=== PATIENT | female | born 1980 | race Caucasian/White ===

== ENCOUNTER 2020-10-30 09:03 | Emergency (ER) | payer OTHER ==
[2020-10-30 09:43] VITALS: BP 132/65; PULSE 75; TEMP 97.5; BMI 26.3
[2020-10-30] MEDS ORDERED: ACETAMINOPHEN 1000 MG/100 ML VIAL (NON FORMULARY) IVPB ONE (10:04)
[2020-10-30] MEDS ORDERED: SODIUM CHLORIDE 1,000 ML IV STA (10:04)
[2020-10-30] MEDS ORDERED: METOCLOPRAMIDE HCL INJECTION 10 MG/2 ML VIAL IVPB ONE (10:59)
[2020-10-30] MEDS ORDERED: METOCLOPRAMIDE HCL INJECTION 10 MG/2 ML VIAL ONE (11:16)
[2020-10-30] MEDS ORDERED: ACETAMINOPHEN INJECTION 100 ML IVPB ONE (11:17)
[2020-10-30 11:38] LABS: BASO % 0.7 % (0-2.0); EOS % 5.2 % (0-4.5); HEMATOCRIT 41.8 % (32.4-45.2); HEMOGLOBIN 14.6 GM/dL (10.7-15.3); LYMPH % 35.6 % (8-40); MCH 32.3 pg (25.7-33.7); MCHC 34.9 g/dl (32.0-36.0); MEAN CELL VOLUME 92.5 fl (80-96); MEAN PLT VOLUME 8.7 fl (7.5-11.1); MONO % 5.4 % (3.8-10.2); NEUT % 53.1 % (42.8-82.8); PLATELET COUNT 286 K/MM3 (134-434); RBC 4.52 M/mm3 (3.60-5.2); RDW 13.7 % (11.6-15.6); WHITE BLOOD COUNT 5.6 K/mm3 (4.0-10.0)
[2020-10-30 11:40] LABS: PH,URINE 5.5 (5.0-8.0); URINE APPEARANCE CLEAR; URINE BILIRUBIN NEGATIVE (NEGATIVE); URINE COLOR YELLOW; URINE GLUCOSE (UA) NEGATIVE (NEGATIVE); URINE KETONE NEGATIVE (NEGATIVE); URINE LEUK ESTERASE NEGATIVE (NEGATIVE); URINE NITRITE NEGATIVE (NEGATIVE); URINE PROTEIN NEGATIVE (NEGATIVE); URINE UROBILINOGEN 0.2 mg/dL (0.2-1.0)
[2020-10-30 11:42] LABS: HCG,QUALITATIVE URINE Negative
[2020-10-30 11:45] LABS: POTASSIUM 4.2 mmol/L (3.5-5.1)
[2020-10-30 11:46] LABS: CALCIUM 9.2 mg/dL (8.5-10.1)
[2020-10-30 11:47] LABS: BLOOD UREA NITROGEN 10.4 mg/dL (7-18)
[2020-10-30 11:50] LABS: CREATININE 0.7 mg/dL (0.55-1.3)
[2020-10-30 11:53] LABS: BILIRUBIN,TOTAL 0.6 mg/dL (0.2-1)
== END 2020-10-30 15:06 | disposition home or self-care (01) ==
LOC: JER 09:03 → JERFT 09:03
PROC: 3E033NZ Introduction of Analgesics, Hypnotics, Sedatives into Peripheral Vein, Percutaneous Approach (ICD-10-PCS; principal; 2020-10-30)
PROC: 3E033GC Introduction of Other Therapeutic Substance into Peripheral Vein, Percutaneous Approach (ICD-10-PCS; 2020-10-30)
PROC: 3E0337Z Introduction of Electrolytic and Water Balance Substance into Peripheral Vein, Percutaneous Approach (ICD-10-PCS; 2020-10-30)
DX: R51.9 Headache, unspecified (principal); M25.512 Pain in left shoulder
CPT/HCPCS: 36415; 70450-TC; 80053; 81003; 84703; 85025; 86618; 87086; 99285-25; J0131

== ENCOUNTER 2021-06-05 13:57 | Emergency (ER) | payer OTHER ==
[2021-06-05 14:12] VITALS: BP 103/70; PULSE 75; TEMP 98.2; BMI 26.1
[2021-06-05] MEDS ORDERED: KETOROLAC TROMETHAMINE 60 MG/2 ML VIAL IM ONE (15:38)
[2021-06-05] MEDS ORDERED: METHOCARBAMOL 500 MG TABLET PO ONE (15:38)
[2021-06-05] MEDS ORDERED: LIDOCAINE 5% TOPICAL PATCH TP ONE (15:39)
[2021-06-05] MEDS ORDERED: METHOCARBAMOL 500 MG TABLET ONE (15:51)
[2021-06-05] MEDS ORDERED: LIDOCAINE 5% TOPICAL PATCH ONE (15:51)
[2021-06-05] MEDS ORDERED: KETOROLAC TROMETHAMINE 30 MG/1 ML VIAL ONE (15:51)
== END 2021-06-05 17:04 | disposition home or self-care (01) ==
LOC: JERFT 13:57 → JER 13:57 → JERFT 17:04
PROC: 3E023GC Introduction of Other Therapeutic Substance into Muscle, Percutaneous Approach (ICD-10-PCS; principal; 2021-06-05)
DX: M54.5 Low back pain (principal)
CPT/HCPCS: 72100-TC-FY; 99284-25

== ENCOUNTER 2022-03-09 21:01 | Emergency (ER) | payer OTHER ==
[2022-03-09 21:27] VITALS: BP 121/81; PULSE 90; TEMP 98.1; BMI 22.6
[2022-03-09] MEDS ORDERED: KETOROLAC TROMETHAMINE 30 MG/1 ML VIAL IM ONE (22:24)
[2022-03-09] MEDS ORDERED: KETOROLAC TROMETHAMINE 30 MG/1 ML VIAL ONE (22:25)
== END 2022-03-09 23:28 | disposition home or self-care (01) ==
LOC: JERFT 21:01
PROC: 3E0234Z Introduction of Serum, Toxoid and Vaccine into Muscle, Percutaneous Approach (ICD-10-PCS; principal; 2022-03-09)
DX: S93.491A Sprain of other ligament of right ankle, initial encounter (principal)
CPT/HCPCS: 73610-TC-RT-FY; 73630-TC-RT-FY; 99284-25

== ENCOUNTER 2023-08-01 20:40 | Emergency (ER) | payer OTHER ==
[2023-08-01 20:47] VITALS: BP 141/91; PULSE 82; RESP 20; TEMP 97.5; BMI 25.2
[2023-08-01] MEDS ORDERED: CLINDAMYCIN HCL 300 MG CAPSULE PO ONE (21:19)
[2023-08-01] MEDS ORDERED: traMADol HCL 50 MG TABLET PO ONE (21:22)
[2023-08-01] MEDS ORDERED: CLINDAMYCIN HCL 150 MG CAPSULE (FP) ONE (21:24)
[2023-08-01] MEDS ORDERED: traMADol HCL 50 MG TABLET ONE (21:24)
== END 2023-08-01 21:33 | disposition home or self-care (01) ==
LOC: JERFT 20:40
DX: K08.89 Other specified disorders of teeth and supporting structures (principal)
CPT/HCPCS: 99283-25

== ENCOUNTER 2023-10-16 08:58 | Emergency (ER) | payer OTHER ==
[2023-10-16 09:10] VITALS: RESP 18; BMI 23.3
[2023-10-16] MEDS ORDERED: ACETAMINOPHEN 1000 MG/100 ML BAG IVPB ONE (09:23)
[2023-10-16] MEDS ORDERED: SODIUM CHLORIDE 0.9% 500 ML INFUS.BAG IV ONE (09:23)
[2023-10-16] MEDS ORDERED: METOCLOPRAMIDE HCL INJECTION 10 MG/2 ML VIAL IVPUSH ONE (09:24)
[2023-10-16] MEDS ORDERED: METOCLOPRAMIDE HCL INJECTION 10 MG/2 ML VIAL ONE (10:26)
[2023-10-16] MEDS ORDERED: ACETAMINOPHEN INJECTION 100 ML IVPB ONE (10:27)
[2023-10-16 12:29] VITALS: BP 116/74; PULSE 78; TEMP 98
== END 2023-10-16 12:29 | disposition home or self-care (01) ==
LOC: JERFT 08:58 → JER 08:58
PROC: 3E033NZ Introduction of Analgesics, Hypnotics, Sedatives into Peripheral Vein, Percutaneous Approach (ICD-10-PCS; principal; 2023-10-16)
PROC: 3E033GC Introduction of Other Therapeutic Substance into Peripheral Vein, Percutaneous Approach (ICD-10-PCS; 2023-10-16)
DX: R51.9 Headache, unspecified (principal); R05.9 Cough, unspecified; B34.9 Viral infection, unspecified; Z20.822 Contact with and (suspected) exposure to COVID-19
CPT/HCPCS: 0241U-QW; 99284-25